=== PATIENT | female | born 1965 | race Caucasian/White ===

== ENCOUNTER 2021-03-20 17:05 | Emergency (ER) | payer OTHER ==
[~2021-03-20] VITALS: Ht 177.8 cm; Wt 136.1 kg
[~2021-03-20 17:05] MED LIST: AZITHROMYCIN 2250 MG PO; BACTRIM DS TAB1 EACH PO; CARISOPRODOL 3350 MG PO; ERYTHROMYCIN E3.5 G1 OPHTHALMIC; FLEXERIL PO; IBUPROFEN 800800 M1 PO; KEFLEX500 MG PO; MOBIC7.5 M1 PO; NAPROSYN500 MG PO; NOHOMEMEDICATIONS; NORCO 5-325 TA1 EACH PO; NORFLEX100 MG PO; PREDNISONE50 MG PO; PROAIR HFA8.5 GM INH; SOMA250 MG PO; TESSALON PERLE100 M1 PO; ULTRAM 50MG TAB50 MG PO; VENTOLIN HFA 1818 GM INH; ZPAK PO
[2021-03-20 17:10] VITALS: BP 180/106
== END 2021-03-20 18:39 | disposition left against medical advice (07) ==
LOC: M.ERS 17:05
DX: R51.9 Headache, unspecified (principal); Z53.21 Procedure and treatment not carried out due to patient leaving prior to being seen by health care provider